=== PATIENT | male | born 1975 | race Caucasian/White ===

== ENCOUNTER 2022-01-17 12:57 | Emergency (ER) | payer OTHER, SELFPAY ==
[2022-01-17] VITALS (10 sets, daily range): BP systolic 119–158; BP diastolic 68–94; PULSE 60–76; RESP 15–20; TEMP 36.2; O2SAT 96–98; BMI 32.1
--- NOTE | 2022-01-17 14:13 | DI.RAD.S_ITS ---
PROCEDURE: XR CHEST 1V INDICATIONS: chest pain TECHNIQUE: One view of the chest was acquired. COMPARISON: None. FINDINGS: Surgical changes and devices: None. Lungs and pleura: Lungs are clear. No pleural effusions or pneumothorax. Mediastinum: Mediastinal contours appear normal. Heart size is normal. Bones and chest wall: No suspicious bony lesions. Overlying soft tissues appear unremarkable. IMPRESSION: No acute cardiopulmonary abnormality. Dictated by: Tee Hanson M.D. on 01/17/2022 at 15:33 Approved by: Tee Hanson M.D. on 01/17/2022 at 15:38
[2022-01-17 14:22] LABS: Add Manual Diff / Slide Review NO; Basophils Absolute Auto 100 /uL (0-100); Basophils Percent Auto 0.9 % (0-2); Eosinophils Absolute Auto 200 /uL (0-450); Eosinophils Percent Auto 2.5 % (2-4); Hematocrit 42.5 % (41-53); Hemoglobin 14.9 g/dL (13.5-17.5); Lymphocytes Absolute Auto 1700 /uL (1100-4500); Lymphocytes Percent Auto 23.2 % (25-40); Mean Corpuscular HGB Conc 35.1 % (30-36); Mean Corpuscular Hemoglobin 31.2 PG (26-34); Mean Corpuscular Volume 88.7 fL (80-100); Monocytes Absolute Auto 700 /uL (0-900); Neutrophils Absolute Auto 4800 /uL (1500-7000); Neutrophils Percent Auto 64.4 % (50-75); Platelet Count 216 X10^3/uL (150-400); Red Blood Cell Count 4.79 X10^6/uL (4.5-5.9); Red Cell Distribution Width 12.9 % (11.6-14.8); White Blood Cell Count 7.5 X10^3/uL (4.5-11.0)
[2022-01-17 14:36] LABS: Alanine Aminotransferase 92 IU/L (<50); Albumin 4.4 g/dL (3.5-5.0); Albumin Globulin Ratio 1.1 (1.0-2.8); Alkaline Phosphatase 61 U/L (38-126); Aspartate Aminotransferase 65 IU/L (17-59); BUN Creatinine Ratio 14.3 (6-22); Bilirubin Total 0.7 mg/dL (0.2-1.3); Blood Urea Nitrogen 12 mg/dL (9-20); Calcium 9.1 mg/dL (8.4-10.2); Carbon Dioxide 27 mmol/L (22-32); Chloride 101 mmol/L (98-107); Creatine Kinase 94 U/L (55-170); Estimated Glomerular Filt Rate > 60 mL/min (>60); Globulin 3.9 g/dL (1.7-4.1); Glucose 95 mg/dL (70-100); HEMOLYSIS 25 (0-50); Lipase 90 U/L (23-300); Magnesium 2.1 mg/dL (1.6-2.3); Sodium 139 mmol/L (137-145); Total Protein 8.3 g/dL (6.3-8.2)
--- NOTE | 2022-01-17 14:42 | ED_ITS ---
HPI - Arrhythmia/Palpitations General Chief Complaint: Arrhythmia/Palpitations Stated Complaint: Heart Skipping, SOB Time Seen by Provider: 01/17/22 14:40 Source: patient Mode of arrival: Ambulatory Limitations: no limitations History of Present Illness HPI narrative: This is a 46-year-old with no known medical issues who drinks about 5 alcoholic drinks daily, patient states this morning woke up with some skipped an extra beats about 2:00 a.m. he felt it from about 2:28 a.m.. He states it woke him up from sleep. He denies any chest pain or pressure. He states like his heart was beating, some extra beats not persistently fast, he felt a little short of breath at the time but not currently. He denies any diaphoresis, no syncope or lightheadedness, no nausea or vomiting, no swelling in extremities, no issues with bowel movements or urination, no cold cough or congestion. Denies any past medical history. Denies any surgeries. Patient no known drug allergies. He chews occasionally for tobacco but has not for some time he states he drinks about 5 mixed alcoholic drinks daily, no illicit. Denies any family history of cardiac arrhythmias, coronary artery disease, vascular issues or other known me dical issues. Related Data Home Medications Medication Instructions Recorded Confirmed Lansoprazole (Prevacid) 15 mg PO ##0 01/04/07 Allergies Allergy/AdvReac Type Severity Reaction Status Date / Time No Known Drug Allergies Allergy Verified 01/17/22 13:06 Review of Systems Review of Systems ROS Unobtainable: All systems reviewed & are unremarkable except as noted in HPI and below Patient History Social History Smoking Status: Unknown if ever smoked Smoking Status: Unknown if ever smoked alcohol intake frequency: 3 or more drinks per day Substance Use Type: does not use Exam Narrative Exam Narrative: GENERAL: Alert and oriented x three, male in mild distress. HEENT: Head normocephalic, atraumatic, EOMI, pupils reactive, face symmetric, moist mucous membranes NECK: Supple, full range of motion CARDIOVASCULAR: Regular rate and rhythm without murmurs, rubs or gallops. No JVD. No swelling bilateral lower extremities. RESPIRATORY: Breath sounds equal bilaterally, no wheezes rales or rhonchi. No tachypnea or accessory muscle use. ABDOMEN: Soft, nontender. Normoactive bowel sounds all 4 quadrants. No guarding or rebound, rigidity, no mass : No CVA tenderness EXTREMITIES: Normal range of motion, no clubbing or edema. Neurovascularly intact NEUROLOGICAL: Cranial nerves II through XII grossly intact. Moving all extremities SKIN: Warm, dry, no petechiae, no rashes or lesions. Initial Vital Signs Initial Vital Signs: Vital Signs Temperature 97.1 F L 01/17/22 13:06 Pulse Rate 76 01/17/22 13:06 Respiratory Rate 15 01/17/22 13:06 Blood Pressure 158/94 H 01/17/22 13:06 Pulse Oximetry 97 01/17/22 13:06 Oxygen Delivery Method 01/17/22 13:06 Scores HEART Score Heart Score history: Slightly Suspicious Heart Score EKG: Normal Heart Score Age: 45-64 years old Heart Score risk factors: No known risk factors Heart Score troponin: < or = to normal limit Heart Score Total: 1 Wells' Criteria for PE Clinical signs and symptoms of DVT: No PE is #1 Dx or equally likely: No Heart rate > 100: No Immobilization at least 3 days or surg in previous 4 weeks: No History of PE or DVT: No Hemoptysis: No Malignancy w/Treatment within 6 months or palliative: No Wells' PE Score total: 0 Course Orders Ordered: ED Orders 01/17/22 13:18 EKG-12 Lead Stat 01/17/22 14:08 Complete Blood Count AUTO DIFF Stat Comprehensive Metabolic Panel Stat Lipase Stat Magnesium Stat Troponin & CK Cardiac Panel Stat 01/17/22 14:13 XR chest 1V Stat EKG-12 Lead Stat 01/17/22 14:32 Urinalysis and Microscopic Stat Vital Signs Vital signs: Vital Signs - 8 hr 01/17/22 13:06 01/17/22 14:32 01/17/22 14:33 Temperature 97.1 F L Pulse Rate 76 63 Respiratory Rate 15 18 Blood Pressure 158/94 H 134/80 Pulse Oximetry 97 98 Oxygen Delivery Method Room Air 01/17/22 14:33 01/17/22 14:40 01/17/22 14:40 Temperature Pulse Rate 63 60 Respiratory Rate 20 18 Blood Pressure 131/68 Pulse Oximetry 97 96 Oxygen Delivery Method 01/17/22 14:50 01/17/22 14:50 01/17/22 15:00 Temperature Pulse Rate Respiratory Rate 20 Blood Pressure 129/71 126/70 Pulse Oximetry 96 Oxygen Delivery Method 01/17/22 15:00 01/17/22 15:10 01/17/22 15:10 Temperature Pulse Rate 60 64 Respiratory Rate 18 20 Blood Pressure 132/72 Pulse Oximetry 97 98 Oxygen Delivery Method 01/17/22 15:20 01/17/22 15:20 01/17/22 15:30 Temperature Pulse Rate 61 Respiratory Rate 19 Blood Pressure 119/68 146/74 H Pulse Oximetry 96 Oxygen Delivery Method 01/17/22 15:30 01/17/22 16:21 Temperature Pulse Rate 65 62 Respiratory Rate 17 18 Blood Pressure 137/71 Pulse Oximetry 98 98 Oxygen Delivery Method Room Air MDM - Arrhythmia/Palpitations Lab Data Result diagrams: 01/17/22 14:08 01/17/22 14:08 Labs: Lab Results 01/17/22 01/17/22 01/17/22 Range/Units 14:08 14:08 14:32 WBC 7.5 (4.5-11.0) X10^3/uL RBC 4.79 (4.5-5.9) X10^6/uL Hgb 14.9 (13.5-17.5) g/dL Hct 42.5 (41-53) % MCV 88.7 (80-100) fL MCH 31.2 (26-34) PG MCHC 35.1 (30-36) % RDW 12.9 (11.6-14.8) % Plt Count 216 (150-400) X10^3/uL Neut % (Auto) 64.4 (50-75) % Lymph % (Auto) 23.2 L (25-40) % Preble % (Auto) 9.0 (3-14) % Eos % (Auto) 2.5 (2-4) % Baso % (Auto) 0.9 (0-2) % Neut # (Auto) 4800 (4853-1957) /uL Lymph # (Auto) 1700 (2707-4821) /uL Preble # (Auto) 700 (0-900) /uL Eos # (Auto) 200 (0-450) /uL Baso # (Auto) 100 (0-100) /uL Sodium 139 (137-145) mmol/L Potassium 4.0 (3.4-5.1) mmol/L Chloride 101 (98-107) mmol/L Carbon Dioxide 27 (22-32) mmol/L BUN 12 (9-20) mg/dL Creatinine 0.84 (0.66-1.25) mg/dL Estimated GFR > 60 (>60) mL/min BUN/Creatinine Ratio 14.3 (6-22) Glucose 95 (70-100) mg/dL Calcium 9.1 (8.4-10.2) mg/dL Magnesium 2.1 (1.6-2.3) mg/dL Total Bilirubin 0.7 (0.2-1.3) mg/dL AST 65 H (17-59) IU/L ALT 92 H (<50) IU/L Alkaline Phosphatase 61 (38-126) U/L Total Creatine Kinase 94 (55-170) U/L CK-MB (CK-2) TNP CK-MB (CK-2) Rel Index TNP Troponin I < 0.012 (0.01-0.034) ng/mL Total Protein 8.3 H (6.3-8.2) g/dL Albumin 4.4 (3.5-5.0) g/dL Globulin 3.9 (1.7-4.1) g/dL Albumin/Globulin Ratio 1.1 (1.0-2.8) Lipase 90 (23-300) U/L Urine Color Yellow Urine Appearance Clear Urine pH 5.0 (4.5-8.0) Ur Specific Edison <=1.005 (1.000-1.035) Urine Protein Negative (Negative) Urine Glucose (UA) Negative (Negative) g/dL Urine Ketones Negative (NEGATIVE) Urine Occult Blood Negative (Negative) Urine Nitrate Negative (Negative) Urine Bilirubin Negative (NEGATIVE) Urine Urobilinogen 0.2 (0.2) E.U./dL Ur Leukocyte Esterase Negative (NEGATIVE) Urine RBC 0-1/hpf (0-5/HPF) Urine WBC 0-1/hpf (0-5/HPF) Urine Bacteria None seen (None) Ur Culture Indicated? Cult not indicated Imaging Data Chest x-ray: Radiologist's Impresson: [address] [id number] XRay Report Signed Patient: Ian Mcdonald MR#: [id number] : 1975 Acct:[id number] Age/Sex: 46 / M Date of Service: 01/17/22 Loc: ED Accession Number: [id number] ?? Procedure: XR chest 1V Ordering Provider: Sally Dumont D.O. PROCEDURE:? XR CHEST 1V ? INDICATIONS:? chest pain ? TECHNIQUE:? One view of the chest was acquired.? ? COMPARISON:? None. ? FINDINGS:? ? Surgical changes and devices:? None.? ? Lungs and pleura:? Lungs are clear.? No pleural effusions or pneumothorax.? ? Mediastinum:? Mediastinal contours appear normal.? Heart size is normal.? ? Bones and chest wall:? No suspicious bony lesions.? Overlying soft tissues appear unremarkable.? ? IMPRESSION:? No acute cardiopulmonary abnormality. ? ? Dictated by: Tee Hanson M.D. on 01/17/2022 at 15:33 ? ? Approved by: Tee Hanson M.D. on 01/17/2022 at 15:38 ECG Data Attestation: I personally reviewed and interpreted this ECG as follows: Interpretation: Sinus rhythm rate of 77 LA 166 QRS [address]TC [address] No acute [address] elevation depression appreciated. MDM Narrative Medical decision making narrative: This is a 46-year-old male with sensation of palpitations which have resolved. Patient states still having symptoms when he arrived but not persisting. No acute changes on telemetry, EKG, chest x-ray or lab work. Patient does drink about 5 alcoholic drinks daily which might predispose him to cardiac arrhythmias. No strong family history or other risk factors. Patient and I discussed plan for follow-up, return precautions this time he feels low risk from cardiac arrhythmia standpoint. Return precautions discussed. Discharge Plan Departure Patient Disposition: Home Clinical Impression: Palpitations Instructions: DI for Palpitations Activity Restrictions/Additional Instructions: Follow-up with your primary care, ETELVINA richards. Discuss about whether or not take a Holter monitor or ZIO patch check for any arrhythmias particularly having persistent symptoms of extra beats or irregular beats. Alcohol can make you more likely to have arrhythmias so I would recommend decreasing your alcohol intake to 1 or 2 drinks daily. Please return for recurrent or persistent symptoms, lightheadedness or passing out, new chest pain, shortness of breath, persistently fast or irregular heartbeat lasting more than a few minutes or other new or concerning symptoms Prescriptions: No Action Lansoprazole (Prevacid) 15 mg PO Qty: 0 Referrals: Miscellaneous,Doctor, MD [Primary Care Provider] - Visit Report Forms: Patient Portal/API
[2022-01-17 14:46] LABS: Troponin I < 0.012 ng/mL (0.01-0.034)
[2022-01-17 15:15] LABS: Appearance Urine UA CLEAR; Bilirubin Urine UA NEGATIVE (NEGATIVE); Color Urine UA YELLOW; Glucose Urine UA NEGATIVE (Negative); Ketones Urine UA NEGATIVE (NEGATIVE); Leukocyte Esterase Urine UA NEGATIVE (NEGATIVE); Nitrite Urine UA NEGATIVE (Negative); Occult Blood Urine UA NEGATIVE (Negative); Protein Urine UA NEGATIVE (Negative); Specific Gravity Urine UA <=1.005 (1.000-1.035); Urobilinogen Urine UA 0.2 E.U./dL (0.2)
[2022-01-17 15:42] LABS: Bacteria Urine None Seen; Culture Indicated Urine Cult Not Indicated; RBC Urine 0-1/HPF (0-5/HPF); WBC Urine 0-1/HPF (0-5/HPF)
== END 2022-01-17 16:22 | disposition home or self-care (01) ==
PROVIDERS: Emergency Provider Emergency Medicine
DX: R00.2 Palpitations (principal); R07.9 Chest pain, unspecified
CPT/HCPCS: 36415; 71045; 80053; 81001; 82550; 83690; 83735; 84484; 85025; 93005; 93010; 99284